=== PATIENT | male | born 1955 | race Caucasian/White ===

== ENCOUNTER 2021-03-28 15:07 | Emergency (ER) | payer SELFPAY ==
[~2021-03-28] VITALS: Ht 188 cm; Wt 90.7 kg
[2021-03-28] MEDS ORDERED: IOHEXOL 300 MG/ML 100ML VIAL. IV ONE (15:15)
--- NOTE | 2021-03-28 15:17 | PHYS DOC ---
Past Medical History Past Medical History: No Pertinent History Past Surgical History: No Surgical History Smoking Status: Never Smoker Alcohol Use: None Drug Use: None General Adult HPI: HPI: Patient is a 65-year-old male presenting via EMS for code stroke. Last known normal was yesterday at 3 PM, proximately 24 hours ago. Patient was reportedly at [facility] and suffered a witnessed fall in which he fell backwards onto [facility] but did not hit head or lose consciousness. With that said, ever since the fall he was noted by significant other and family that he had been slurring his words and had new onset right facial, upper extremity and lower extremity motor function weakness. Symptoms were ongoing today which concerned friend prompting her to call EMS. On arrival, EMS report an unremarkable [id number] glucose, GCS 14, hemodynamically stable patient with ongoing right facial droop, slurred speech and 4/5 muscle strength of right upper and lower extremity. He was subsequently transferred to our facility for higher acuity of care. On arrival, patient denies being in any pain, admits ongoing motor function change but no other symptoms. Denies any medical issues. Denies any alcohol tobacco or illicit drug use Review of Systems: Review of Systems: Fourteen body systems of review of systems have been reviewed. See HPI for pertinent positives and negative responses, other navarro all other systems are negative, non-pertinent or non-contributory Heart Score: C/O Chest Pain: No HEART Score for Chest Pain: HEART Score for Chest Pain Response (Comments) Value History Slighlty/Non-Suspicious 0 ECG Nonspecific Repolarizatio 1 Age > 65 2 Risk Factors 1 or 2 Risk Factors 1 Troponin < Normal Limit 0 Total 4 Risk Factors: Risk Factors: DM, Current or recent (<one month) smoker, HTN, HLP, family history of CAD, obesity. Risk Scores: Score 0 - 3: 2.5% MACE over next 6 weeks - Discharge Home Score 4 - 6: 20.3% MACE over next 6 weeks - Admit for Clinical Observation Score 7 - 10: 72.7% MACE over next 6 weeks - Early Invasive Strategies Physical Exam: PE: General: Appears age-appropriate, atraumatic, appears stunned with psychomotor retardation and slowed responses Skin: Warm, dry. Normal for ethnicity. HEENT: Atraumatic. PERRLA. No midline spinal tenderness, moist mucous membranes. Neck: Trachea midline. Normal ROM. Respiratory: Normal WOB. CTAB w/o w/r/r. No tachypnea. Cardiovascular: Regular rate and rhythm. Normal peripheral perfusion. No edema. Abdomen: Soft. Non tender. No distension. Back: Normal ROM. No midline spinal tenderness or step-offs appreciated Musculoskeletal: No swelling or deformity. Neuro: Alert and oriented to person and place but not time which is not his baseline. MAEE. GCS 14 (e4, v4, v6). Normal FNF. Negative pronator drift. Normal heel to becerra. Normal Olaf. Patient had right lower facial droop versus contralateral side and difficulty forming words/producing speech with sparing of the forehead otherwise cranial nerves II through XII intact, normal strength and sensation. NIH stroke scale of 4 as documented below Psych: Normal affect and mood. Current Patient Data: Labs: Laboratory Tests Test 03/28/21 15:36 03/28/21 15:58 03/28/21 16:30 Glucose (Fingerstick) 89 mg/dL White Blood Count 11.0 x10^3/uL Red Blood Count 5.04 x10^6/uL Hemoglobin 16.3 g/dL Hematocrit 46.2 % Mean Corpuscular Volume 92 fL Mean Corpuscular Hemoglobin 32 pg Mean Corpuscular Hemoglobin Concent 35 g/dL Red Cell Distribution Width 12.5 % Platelet Count 177 x10^3/uL Neutrophils (%) (Auto) 85 % Lymphocytes (%) (Auto) 8 % Monocytes (%) (Auto) 7 % Eosinophils (%) (Auto) 0 % Basophils (%) (Auto) 0 % Neutrophils # (Auto) 9.3 x10^3/uL Lymphocytes # (Auto) 0.9 x10^3/uL Monocytes # (Auto) 0.7 x10^3/uL Eosinophils # (Auto) 0.0 x10^3/uL Basophils # (Auto) 0.0 x10^3/uL Prothrombin Time 12.7 SEC Prothromb Time International Ratio 1.0 Activated Partial Thromboplast Time 30 SEC Troponin I High Sensitivity 21 ng/L PT-Qmo-N-Type Natriuretic Peptide 82 pg/mL Ethyl Alcohol Level < 10 mg/dL Urine Collection Type Void Urine Color Yellow Urine Clarity Clear Urine pH 7.5 Urine Specific Jeffrey >=1.030 Urine Protein Negative mg/dL Urine Glucose (UA) Negative mg/dL Urine Ketones (Stick) Negative mg/dL Urine Blood Negative Urine Nitrite Negative Urine Bilirubin Negative Urine Urobilinogen Dipstick 1.0 mg/dL Urine Leukocyte Esterase Negative Urine RBC Rare /HPF Urine WBC 5-10 /HPF Urine Squamous Epithelial Cells Occ /LPF Urine Bacteria Few /HPF Urine Mucus Slight /LPF Urine Opiates Screen Neg Urine Methadone Screen Neg Urine Barbiturates Neg Urine Phencyclidine Screen Neg Urine Amphetamine/Methamphetamine Neg Urine Benzodiazepines Screen Neg Urine Cocaine Screen Neg Urine Cannabinoids Screen Neg Urine Ethyl Alcohol Neg Current Medications Medications (Trade) Dose Ordered Sig/Rickey Route PRN Reason Start Time Stop Time Status Last Admin Dose Admin Iohexol (Omnipaque 300 Mg/ml) 75 ml 1X ONCE IV 03/28/21 15:15 03/28/21 15:42 DC 03/28/21 15:30 Info (CONTRAST GIVEN -- Rx MONITORING) 1 each PRN DAILY PRN MC SEE COMMENTS 03/28/21 15:45 03/30/21 15:44 Vital Signs: Vital Signs Date Time Temp Pulse Resp B/P (MAP) Pulse Ox O2 Delivery O2 Flow Rate FiO2 03/28/21 15:07 99.0 95 20 168/102 (124) 95 Room Air 99.0 Vital Signs Date Time Temp Pulse Resp B/P (MAP) Pulse Ox O2 Delivery O2 Flow Rate FiO2 03/28/21 15:07 99.0 95 20 168/102 (124) 95 Room Air 99.0 EKG: EKG: EKG ordered and interpreted by myself 1545 hrs. sinus rhythm at 95 bpm, unremarkable intervals, left axis deviation, no acute ischemic findings, no STEMI Radiology/Procedures: Radiology/Procedures: EXAM: CT head without contrast INDICATION: Code stroke, fall yesterday COMPARISON: None TECHNIQUE: Axial CT imaging through the head without intravenous contrast. Sagittal and coronal reformats were obtained. One or more of the following individualized dose reduction techniques were utilized for this examination: 1. Automated exposure control 2. Adjustment of the mA and/or kV according to patient size 3. Use of iterative reconstruction technique. FINDINGS: Ventricles and sulci are mildly enlarged. Hypodensities in the left caudate head and lentiform nucleus, age indeterminate. No large territorial infarct. The skull and scalp are intact. Visualized paranasal sinuses and mastoid air cells are clear. Infarct. Mild scattered white matter hypoattenuation. IMPRESSION: 1. No intracranial hemorrhage. 2. Age-indeterminate lacunar infarcts in the left basal ganglia. MRI could be obtained to further evaluate if indicated. ///////////////////// EXAM: CT cervical spine without contrast INDICATION: Code stroke, fall yesterday COMPARISON: None TECHNIQUE: Axial CT imaging through cervical spine without intravenous contrast. Sagittal and coronal reformats were obtained. One or more of the following individualized dose reduction techniques were utilized for this examination: 1. Automated exposure control 2. Adjustment of the mA and/or kV according to patient size 3. Use of iterative reconstruction technique. FINDINGS: No acute fracture. No listhesis. The cranial cervical junction and atlantoaxial interval are normal. There is no disc space or facet joint widening. There is straightening of lordosis. Moderate disc space narrowing throughout the cervical spine. 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 Ossification of the posterior longitudinal ligament results in severe canal narrowing from C3-C4 through C5-C6. Mild to moderate canal narrowing at C6-C7. There is severe bilateral foraminal narrowing at these levels related to uncovertebral joint proliferation. Moderate facet arthrosis at C2-C3 and C3-C4. Lung apices are clear. Prevertebral soft tissue is normal. IMPRESSION: 1. No acute osseous abnormality. 2. 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 This may predispose the patient to cord injury in the setting of minor trauma. MRI could be obtained to further evaluate if there is clinical concern for acute cord injury. 3. Moderate degenerative disc disease. Severe bilateral foraminal narrowing at C3-C4 through C5-C6. Electronically signed by: Jessica Perez MD (03/28/2021 3:44 PM) [id number] ////////////////////////////// EXAMINATION: XR CHEST 1V CLINICAL HISTORY: Code stroke EXAM DATE/TIME: 03/28/2021 3:16 PM COMPARISON: None FINDINGS: Lines, Tubes, and Devices: None. Cardiomediastinal Silhouette: Prominent cardiac silhouette, likely accentuated by low lung volumes and AP portable technique. Lungs and Pleura: Pulmonary hypoexpansion with nonspecific interstitial prominence. No definite focal airspace consolidation or pleural effusion. Bones and Soft Tissues: Degenerative changes in the thoracic spine. IMPRESSION: Pulmonary hypoexpansion with nonspecific interstitial prominence. Electronically signed by: William Aleman DO (03/28/2021 4:29 PM) [facility] ///////////////////////////////////////// STUDY: CT angiography of the head and neck INDICATION: Stroke alert, symptoms onset after fall yesterday afternoon COMPARISON: None TECHNIQUE: Axial CT imaging of the head and neck utilizing angiography protocol and performed after the intravenous administration of contrast. Precontrast imaging through the head was performed as well. Multiplanar reformats and 3D MIP acquisitions were obtained. Encountered areas of stenosis are measured per NASCET criteria. One or more of the following individualized dose reduction techniques were utilized for this examination: 1. Automated exposure control 2. Adjustment of the mA and/or kV according to patient size 3. Use of iterative reconstruction technique. FINDINGS: CTA NECK: Arch/Proximal Great Vessels: The arch is normal configuration. Great vessel origins are widely patent. Carotid Bifurcation/Cervical ICA: Common carotid arteries, internal carotid arteries, and external carotid arteries are patent. There is mild plaque at the carotid bulbs. No stenosis of the cervical internal carotid arteries. Vertebral Arteries: Dominant left vertebral artery. Mild narrowing at the origin of the left vertebral artery. The left vertebral artery is otherwise normal in caliber and patent. The right vertebral artery is normal in caliber and patent. CTA HEAD: Posterior Circulation: There is multifocal narrowing of the intradural right vertebral artery with occlusion or near-occlusion distally. Mild narrowing of the distal left intradural vertebral artery. Basilar artery is patent. Superior cerebellar arteries are patent. Focal irregularity in the P1 segment of the right CATALYTIC CASE OPERATOR could be artifact or focal stenosis (image 272, series 12). There is normal opacification of the right CATALYTIC CASE OPERATOR artery beyond this. The left CATALYTIC CASE OPERATOR is patent. There is a small left posterior communicating artery. Anterior Circulation: There is severe stenosis of the supraclinoid left ICA (image 7172 series 14) and occlusion of the left ICA terminus/proximal M1 segment of the left MCA. There is reconstitution of flow in the distal M1 segment and in the MCA branches although they demonstrate decreased opacification relative to the right. The A1 segment of the left ERICH is not visualized, either hypoplastic normal variant or occlusion. The A2 segments of the ACAs are well opacified. The right ICA, MCA, and ERICH are normal in caliber and patent. Veins: Dural venous sinuses and jugular veins are patent. MISCELLANEOUS: Severe cervical stenosis at C3-C4 through C5-6 due to bulky ossification of the posterior longitudinal ligament. IMPRESSION: 1. Occlusion of the left ICA terminus and proximal M1 segment of the left MCA. There is reconstitution of flow in the distal M1 segment but flow is decreased in the distal M1 segment and MCA branches relative to the right. 2. Severe stenosis of the supraclinoid left ICA. 3. The A1 segment of the left ERICH is not visualized, hypoplastic variant versus occlusion. 4. Focal irregularity of the P1 segment of the right CATALYTIC CASE OPERATOR could be artifact or focal stenosis. 5. 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 Course & Med Decision Making: Course & Med Decision Making Airway patent, breathing unlabored, IV access, POC glucose and vitals obtained concerning for hypertension only Code stroke called immediately on arrival and above was performed in route to CT scanner. NIH stroke scale performed and 4. History limited. Remaining physical exam and comprehensive ER work-up obtained Disclosed findings of CT imaging with radiologist. [facility] neuro line contacted and case reviewed, given most concerning finding of left MCA occlusion joint decision among all to transfer for higher acuity of care Patient's friend who called EMS arrived and further clarified history. Confirmed patient had a witnessed fall yesterday at [facility] which he landed on his backside without falling hitting head or neck, no whiplash type injury but ever since then has not been acting appropriate. She states they tried to feed him after and go out for a meal but patient was not hungry and had decreased ability to understand and/or express speech. There is been no waxing or waning in mentation, symptoms been constant since onset Ultimately, patient and friend at bedside notified of need for transfer for higher acuity of care and they were amenable. All questions and concerns addressed prior to hospital transfer via EMS Critical Care Time This patient required critical care. Due to the fact that the patient required a significant amount of one on one physician - patient contact time, ordering and review of studies, arranging urgent treatment with development of a management plan, evaluation of patients response to treatment with frequent reassessments, and discussions with other providers this patient required 35 minutes of critical care time. Critical care time was indicated due to the inherent instability and/or potential for instability in this patient. The critical care time that is allocated to this patient is above and beyond any time spent on any other billable procedures performed on this patient. Dragon Disclaimer: Dragon Disclaimer: This electronic medical record was generated, in whole or in part, using a voice recognition dictation system. NIHSS Stroke Scale NIH Stroke Scale: NIH Stroke Scale Response (Comments) Value Level of Consciousness: 0 Alert/Responsive 0 LOC Questions: 1 Answers one correctly 1 LOC Commands: 0 Performs both tasks 0 Best Gaze: 0 Normal 0 Visual: 0 No visual loss 0 Facial Palsy: 1 Minor paralysis 1 Motor - Left Arm 0 No drift 0 Motor - Right Arm 0 No drift 0 Motor - Left Leg 0 No drift 0 Motor: Right Leg 0 No drift 0 Limb Ataxia: 0 Absent 0 Sensory: 0 No loss 0 Best Language: 1 Mild to mod aphasia 1 Dysathria: 1 Mild to moderate 1 Extinction and Inattention: 0 Normal 0 Total 4 Departure Departure Impression: Primary Impression: Ischemic stroke Additional Impression: Cervical stenosis of spine Disposition: 02 SHORT TERM HOSPITAL ([facility]) Admitting Physician: [facility] (DR CHIN) Condition: STABLE SHANE MURILLO DO Mar 28, 2021 15:17
--- NOTE | 2021-03-28 15:29 | RAD ---
EXAM: CT head without contrast INDICATION: Code stroke, fall yesterday COMPARISON: None TECHNIQUE: Axial CT imaging through the head without intravenous contrast. Sagittal and coronal refor mats were obtained. One or more of the following individualized dose reduction techniques were utilized for this examinat ion: 1. Automated exposure control 2. Adjustment of the mA and/or kV according to patient size 3. Use of iterative reconstruction technique. FINDINGS: Ventricles and sulci are mildly enlarged. Hypodensities in the left caudate head and lentiform nucleu s, age indeterminate. No large territorial infarct. The skull and scalp are intact. Visualized parana zaina sinuses and mastoid air cells are clear. Infarct. Mild scattered white matter hypoattenuation. IMPRESSION: 1. No intracranial hemorrhage. 2. Age-indeterminate lacunar infarcts in the left basal ganglia. MRI could be obtained to further mercedes luate if indicated. FOR INTERNAL CODING PURPOSES Critical result: Findings discussed with at 03/28/2021 3:24 PM. RESULT CODE: (C) Electronically signed by: Jessica Perez MD (03/28/2021 3:26 PM) [id number]
[2021-03-28] MEDS ORDERED: CONTRAST GIVEN. MC PRN (15:45)
--- NOTE | 2021-03-28 15:46 | RAD ---
EXAM: CT cervical spine without contrast INDICATION: Code stroke, fall yesterday COMPARISON: None TECHNIQUE: Axial CT imaging through cervical spine without intravenous contrast. Sagittal and coronal reformats were obtained. One or more of the following individualized dose reduction techniques were utilized for this examinat ion: 1. Automated exposure control 2. Adjustment of the mA and/or kV according to patient size 3. Use of iterative reconstruction technique. FINDINGS: No acute fracture. No listhesis. The cranial cervical junction and atlantoaxial interval are normal. There is no disc space or facet joint widening. There is straightening of lordosis. Moderate disc spa ce narrowing throughout the cervical spine. 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 Ossification of the posterior longitudinal ligament results in severe canal narrowing from C3-C4 through C5-C6. Mild to moderate ca nal narrowing at C6-C7. There is severe bilateral foraminal narrowing at these levels related to unco vertebral joint proliferation. Moderate facet arthrosis at C2-C3 and C3-C4. Lung apices are clear. Prevertebral soft tissue is normal. IMPRESSION: 1. No acute osseous abnormality. 2. Severe canal stenosis from C3-C4 through C5-C6 due to bulky ossification of the posterior longitud inal ligament. This may predispose the patient to cord injury in the setting of minor trauma. MRI cou ld be obtained to further evaluate if there is clinical concern for acute cord injury. 3. Moderate degenerative disc disease. Severe bilateral foraminal narrowing at C3-C4 through C5-C6. Electronically signed by: Jessica Perez MD (03/28/2021 3:44 PM) [id number]
--- NOTE | 2021-03-28 16:32 | RAD ---
EXAMINATION: XR CHEST 1V CLINICAL HISTORY: Code stroke EXAM DATE/TIME: 03/28/2021 3:16 PM COMPARISON: None FINDINGS: Lines, Tubes, and Devices: None. Cardiomediastinal Silhouette: Prominent cardiac silhouette, likely accentuated by low lung volumes an d AP portable technique. Lungs and Pleura: Pulmonary hypoexpansion with nonspecific interstitial prominence. No definite focal airspace consolidation or pleural effusion. Bones and Soft Tissues: Degenerative changes in the thoracic spine. IMPRESSION: Pulmonary hypoexpansion with nonspecific interstitial prominence. Electronically signed by: William Aleman DO (03/28/2021 4:29 PM) CLAUDIA
[2021-03-28 16:40] LABS: BASO % 0 % (0-3); EOS % 0 % (0-3); HEMATOCRIT 46.2 % (39.0-53.0); HEMOGLOBIN 16.3 g/dL (13.0-17.5); LYMPH # 0.9 x10^3/uL (1.0-4.8); LYMPH % 8 % (24-48); MEAN CORPUSCULAR HEMOGLOBIN 32 pg (25-35); MEAN CORPUSCULAR HGB CONC 35 g/dL (31-37); MEAN CORPUSCULAR VOLUME 92 fL (79-100); MONO # 0.7 x10^3/uL (0.0-1.1); MONO % 7 % (0-9); NEUT # 9.3 x10^3/uL (1.8-7.7); NEUT % 85 % (31-73); PLATELET COUNT 177 x10^3/uL (140-400); RED BLOOD COUNT 5.04 x10^6/uL (4.30-5.70); RED CELL DISTRIBUTION WIDTH 12.5 % (11.5-14.5)
--- NOTE | 2021-03-28 16:47 | RAD ---
STUDY: CT angiography of the head and neck INDICATION: Stroke alert, symptoms onset after fall yesterday afternoon COMPARISON: None TECHNIQUE: Axial CT imaging of the head and neck utilizing angiography protocol and performed after t he intravenous administration of contrast. Precontrast imaging through the head was performed as well . Multiplanar reformats and 3D MIP acquisitions were obtained. Encountered areas of stenosis are jagdeep ured per NASCET criteria. One or more of the following individualized dose reduction techniques were utilized for this examinat ion: 1. Automated exposure control 2. Adjustment of the mA and/or kV according to patient size 3. Use of iterative reconstruction technique. FINDINGS: CTA NECK: Arch/Proximal Great Vessels: The arch is normal configuration. Great vessel origins are widely patent . Carotid Bifurcation/Cervical ICA: Common carotid arteries, internal carotid arteries, and external ca rotid arteries are patent. There is mild plaque at the carotid bulbs. No stenosis of the cervical int ernal carotid arteries. Vertebral Arteries: Dominant left vertebral artery. Mild narrowing at the origin of the left vertebra l artery. The left vertebral artery is otherwise normal in caliber and patent. The right vertebral ar amber is normal in caliber and patent. CTA HEAD: Posterior Circulation: There is multifocal narrowing of the intradural right vertebral artery with oc clusion or near-occlusion distally. Mild narrowing of the distal left intradural vertebral artery. Ba silar artery is patent. Superior cerebellar arteries are patent. Focal irregularity in the P1 segment of the right MOLDER PIPE COVERING could be artifact or focal stenosis (image 272, series 12). There is normal opacifi cation of the right MOL[employer] P[employer] COVERING artery beyond this. The left MOL[employer] PIPE COVERING is patent. There is a small left posterior c ommunicating artery. Anterior Circulation: There is severe stenosis of the supraclinoid left ICA (image 7172 series 14) an d occlusion of the left ICA terminus/proximal M1 segment of the left MCA. There is reconstitution of flow in the distal M1 segment and in the MCA branches although they demonstrate decreased opacificati on relative to the right. The A1 segment of the left ERICH is not visualized, either hypoplastic normal variant or occlusion. The A2 segments of the ACAs are well opacified. The right ICA, MCA, and ERICH ar e normal in caliber and patent. Veins: Dural venous sinuses and jugular veins are patent. MISCELLANEOUS: Severe cervical stenosis at C3-C4 through C5-6 due to bulky ossification of the posterior longitudina l ligament. IMPRESSION: 1. Occlusion of the left ICA terminus and proximal M1 segment of the left MCA. There is reconstitutio n of flow in the distal M1 segment but flow is decreased in the distal M1 segment and MCA branches re lative to the right. 2. Severe stenosis of the supraclinoid left ICA. 3. The A1 segment of the left ERICH is not visualized, hypoplastic variant versus occlusion. 4. Focal irregularity of the P1 segment of the right MOL[employer] PIPE COVERING could be artifact or focal stenosis. 5. 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 FOR INTERNAL CODING PURPOSES Critical result regarding left ICA and MCA occlusion discussed by Dr. Perez with Dr. Prince at 03/19 420 PM. RESULT CODE: (C) Electronically signed by: Jessica Perez MD (03/28/2021 4:45 PM) [id number]
[2021-03-28 16:54] LABS: PROTHROMBIN TIME PATIENT 12.7 SEC (11.7-14.0)
[2021-03-28 17:04] LABS: BILIRUBIN,URINE NEGATIVE (NEG); CLARITY,URINE CLEAR; COLOR,URINE YELLOW; NITRITE,URINE NEGATIVE (NEG); PH,URINE 7.5 (<5.0-8.0); PROTEIN,URINE NEGATIVE (NEG-TRACE)
[2021-03-28 17:11] LABS: BARBITURATES NEG (NEG); BENZODIAZEPINES NEG (NEG); CANNABINOIDS NEG (NEG); COCAINE NEG (NEG); METHADONE NEG (NEG); OPIATES NEG (NEG); PHENCYCLIDINE NEG (NEG)
[2021-03-28 17:14] LABS: AMPHETAMINE/METHAMPHETAMINE NEG (NEG)
[2021-03-28 17:20] VITALS: BP 184/92
[2021-03-28 17:27] LABS: BACTERIA,URINE FEW /HPF (0-FEW)
[2021-03-28 17:29] LABS: RBC,URINE RARE /HPF (0-2)
[2021-03-28 17:35] LABS: CALCIUM 8.6 mg/dL (8.5-10.1); CREATININE 0.8 mg/dL (0.7-1.3); GFR 96.4; POTASSIUM 3.5 mmol/L (3.5-5.1)
[2021-03-28 17:42] LABS: ALBUMIN/GLOBULIN RATIO 1.3 (1.0-1.7); TOTAL BILIRUBIN 0.6 mg/dL (0.2-1.0); TOTAL PROTEIN 7.1 g/dL (6.4-8.2)
--- NOTE | 2021-03-29 04:31 | EKG ---
[facility] [address] [place] [address] Test Date: 2021-03-28 Test Time: 15:39:45 Pat Name: LINNETTE APARICIO Department: Room: Gender: M Heel Caser: : 1955 Requested By: SHANE MURILLO Order Number: [id number] Reading MD: Measurements Intervals Organ Rate: 94 P: 8 VA: 164 QRS: -48 QRSD: 100 T: 70 QT: 358 QTc: 453 Interpretive Statements SINUS RHYTHM ABNORMAL LEFT AXIS DEVIATION LEFT ANTERIOR FASCICULAR BLOCK INCOMPLETE RIGHT BUNDLE BRANCH BLOCK QRS(T) CONTOUR ABNORMALITY CONSIDER ANTEROSEPTAL MYOCARDIAL DAMAGE T ABNORMALITY IN HIGH LATERAL LEADS ABNORMAL ECG RI6.01 No previous ECG available for comparison
== END 2021-03-28 17:33 | disposition short-term general hospital (02) ==
LOC: ER 15:07
DX: I63.9 Cerebral infarction, unspecified (principal); M48.02 Spinal stenosis, cervical region; M47.814 Spondylosis without myelopathy or radiculopathy, thoracic region; R51.9 Headache, unspecified; R07.89 Other chest pain; I45.10 Unspecified right bundle-branch block; G89.11 Acute pain due to trauma; W18.39XA Other fall on same level, initial encounter; Y93.89 Activity, other specified; Y92.89 Other specified places as the place of occurrence of the external cause; Y99.8 Other external cause status
CPT/HCPCS: 36415; 70450; 70496; 70498; 71045; 72125; 80053; 80307; 81001; 82962; 83880; 84484; 85025; 85610; 85730; 87040; 87086; 93005; 99285; G0480; Q9967